=== PATIENT | female | born 1995 | race Caucasian/White ===

== ENCOUNTER → 2017-10-28 | Outpatient (CLI) | payer BC, OTHER ==
[~2017-10-28] MED LIST: AMBIEN 5 MG TABL5 M1 PO; FLEXERIL PO; HYDROCODONE-AP1 EAC6 PO; IBUPROFEN 600600 M1 PO; IMITREX 25 MG T25 M1 PO; LITHIUM CARBON300 M6 PO; NEURONTIN 300300 M1 PO; NEURONTIN 400400 M1 PO; XANAX 0.25 MG0.25 MG PO; XANAX1 MG PO
[2017-10-28 11:44] LABS: ABSOLUTE BASOPHILS 0.1 thou/uL (0.0-0.2); ABSOLUTE EOSINOPHILS 0.4 thou/uL (0.0-0.7); ABSOLUTE LYMPHOCYTES 2.6 thou/uL (0.8-5.3); ABSOLUTE MONOCYTES 0.6 thou/uL (0.0-1.2); ABSOLUTE NEUTROPHILS 4.3 thou/uL (1.6-8.1); BASOPHILS 0.8 %; EOSINOPHILS 4.7 %; HEMOGLOBIN 12.8 gm/dL (12.0-15.0); LYMPHOCYTES 33.1 %; MCH 31.6 pg (26.0-34.0); MCHC 33.6 g/dL (28.0-37.0); MONOCYTES 7.8 %; MPV 7.2 fl. (7.2-11.1); NUCLEATED RBCS 0 /100WBC; PLATELET COUNT* 323 thou/uL (150-400); POLYS 53.6 %; RBC 4.05 mil/uL (4.20-5.00); RDW-CV 12.2 % (10.5-14.5)
[2017-10-28 11:56] LABS: ALBUMIN 3.5 g/dL (3.4-5.0); CALCIUM 8.5 mg/dL (8.5-10.1); CREATININE 0.8 mg/dL (0.6-1.3); POTASSIUM 3.5 mmol/L (3.5-5.1); TOTAL BILIRUBIN 0.5 mg/dL (<0.1-1.0); TOTAL PROTEIN 6.9 g/dL (6.4-8.2)
== END ==
LOC: M.LAB 11:18
PROVIDERS: Psychiatry & Neurology Psychiatry
DX: F31.63 Bipolar disorder, current episode mixed, severe, without psychotic features (principal)

== ENCOUNTER 2017-11-13 19:37 | Emergency (ER) | payer BC, OTHER ==
[~2017-11-13] VITALS: Ht 162.6 cm; Wt 54.4 kg
[~2017-11-13 19:37] MED LIST changes: -AMBIEN 5 MG TABL5 M1 PO; -FLEXERIL PO; -HYDROCODONE-AP1 EAC6 PO; -IBUPROFEN 600600 M1 PO; -IMITREX 25 MG T25 M1 PO; -LITHIUM CARBON300 M6 PO; -NEURONTIN 300300 M1 PO; -NEURONTIN 400400 M1 PO; -XANAX1 MG PO
[2017-11-13] MEDS ORDERED: AMBIEN 5 MG TABL5 M1 PO (19:49)
[2017-11-13] MEDS ORDERED: XANAX1 MG PO (19:49)
[2017-11-13] MEDS ORDERED: NEURONTIN 400400 M1 PO (19:49)
[2017-11-13] MEDS ORDERED: LITHIUM CARBON300 M6 PO (19:50)
[2017-11-13] MEDS ORDERED: IMITREX 25 MG T25 M1 PO (19:51)
[2017-11-13] MEDS ORDERED: IBUPROFEN 600600 M1 PO (20:35)
[2017-11-13 20:50] VITALS: BP 100/47
== END 2017-11-13 20:51 | disposition home or self-care (01) ==
LOC: M.ERS 19:37
DX: S63.501A Unspecified sprain of right wrist, initial encounter (principal); W19.XXXA Unspecified fall, initial encounter; Y93.89 Activity, other specified; Y92.89 Other specified places as the place of occurrence of the external cause; Y99.8 Other external cause status; F32.9 Major depressive disorder, single episode, unspecified; M79.7 Fibromyalgia; Z88.8 Allergy status to other drugs, medicaments and biological substances

== ENCOUNTER 2017-12-06 02:08 | Emergency (ER) | payer BC, OTHER ==
[~2017-12-06] VITALS: Ht 152.4 cm; Wt 54.4 kg
[~2017-12-06 02:08] MED LIST changes: +AMBIEN 5 MG TABL5 M1 PO; +IBUPROFEN 600600 M1 PO; +IMITREX 25 MG T25 M1 PO; +LITHIUM CARBON300 M6 PO; +NEURONTIN 400400 M1 PO; +XANAX1 MG PO
[2017-12-06] MEDS ORDERED: FLEXERIL PO (02:34)
[2017-12-06] MEDS ORDERED: NEURONTIN 300300 M1 PO (02:35)
[2017-12-06 02:55] LABS: HEMATOCRIT 39.3 % (37.0-47.0); HEMOGLOBIN 13.2 gm/dL (12.0-15.0); MCH 31.2 pg (26.0-34.0); MCHC 33.7 g/dL (28.0-37.0); MCV 92.5 fL (80.0-100.0); MPV 7.4 fl. (7.2-11.1); RBC 4.25 mil/uL (4.20-5.00); WBC 10.6 thou/uL (4.0-11.0)
[2017-12-06 03:08] LABS: URINE BILIRUBIN NEGATIVE (Negative); URINE BLOOD NEGATIVE (Negative); URINE CLARITY CLEAR; URINE COLOR YELLOW; URINE GLUCOSE-RANDOM NEGATIVE (Negative); URINE KETONES NEGATIVE (Negative); URINE LEUKOCYTES-REFLEX NEGATIVE (Negative); URINE NITRITE-REFLEX NEGATIVE (Negative); URINE PROTEIN NEGATIVE (Negative); URINE SPECIFIC GRAVITY <= 1.005 (1.005-1.030); URINE UROBILINOGEN 0.2 E.U./dl (0.2-1.0)
[2017-12-06 03:16] LABS: AMP/METHAMP Negative (Negative); BARBITURATES Negative (Negative); BENZODIAZEPINES POSITIVE (Negative); COCAINE Negative (Negative); METHADONE Negative (Negative); OPIATES Negative (Negative); PCP Negative (Negative); THC POSITIVE (Negative)
[2017-12-06 03:23] LABS: CALCIUM 8.7 mg/dL (8.5-10.1); CREATININE 0.9 mg/dL (0.6-1.3)
[2017-12-06 03:28] LABS: TOTAL BILIRUBIN 0.3 mg/dL (<0.1-1.0); TOTAL PROTEIN 7.6 g/dL (6.4-8.2)
[2017-12-06] MEDS ORDERED: HYDROCODONE-AP1 EAC6 PO (04:26)
[2017-12-06 05:25] VITALS: BP 91/53
== END 2017-12-06 05:28 | disposition home or self-care (01) ==
LOC: M.ERS 02:08
PROVIDERS: Emergency Medicine Emergency Medical Services
DX: M79.641 Pain in right hand (principal); S00.31XA Abrasion of nose, initial encounter; S70.312A Abrasion, left thigh, initial encounter; F32.9 Major depressive disorder, single episode, unspecified; M79.7 Fibromyalgia; Z91.013 Allergy to seafood; Z88.8 Allergy status to other drugs, medicaments and biological substances; T74.21XA Adult sexual abuse, confirmed, initial encounter; Y93.89 Activity, other specified; Y92.89 Other specified places as the place of occurrence of the external cause; Y99.8 Other external cause status

== ENCOUNTER 2017-12-23 14:20 | Emergency (ER) | payer BC, OTHER ==
[~2017-12-23] VITALS: Ht 162.6 cm; Wt 47.6 kg
[~2017-12-23 14:20] MED LIST changes: +FLEXERIL PO; +HYDROCODONE-AP1 EAC6 PO; +NEURONTIN 300300 M1 PO
[2017-12-23 15:30] VITALS: BP 118/75
== END 2017-12-23 15:30 | disposition home or self-care (01) ==
LOC: M.ERS 14:20
DX: S93.492A Sprain of other ligament of left ankle, initial encounter (principal); F32.9 Major depressive disorder, single episode, unspecified; M79.7 Fibromyalgia; Z91.041 Radiographic dye allergy status; Z88.8 Allergy status to other drugs, medicaments and biological substances; Z91.013 Allergy to seafood; X58.XXXA Exposure to other specified factors, initial encounter; Y93.89 Activity, other specified; Y92.89 Other specified places as the place of occurrence of the external cause; Y99.8 Other external cause status

== ENCOUNTER 2018-02-03 15:36 | Emergency (ER) | payer BC, OTHER ==
[~2018-02-03] VITALS: Ht 162.6 cm; Wt 45.4 kg
[2018-02-03] MEDS ORDERED: REMERON15 MG PO (15:44)
[2018-02-03] MEDS ORDERED: PRAZOSIN 1 MG CA1 M1 PO (15:44)
[2018-02-03 16:12] LABS: URINE BILIRUBIN NEGATIVE (Negative); URINE BLOOD NEGATIVE (Negative); URINE CLARITY CLEAR; URINE COLOR YELLOW; URINE GLUCOSE-RANDOM NEGATIVE (Negative); URINE KETONES NEGATIVE (Negative); URINE LEUKOCYTES-REFLEX NEGATIVE (Negative); URINE NITRITE-REFLEX NEGATIVE (Negative); URINE PROTEIN NEGATIVE (Negative); URINE SPECIFIC GRAVITY <= 1.005 (1.005-1.030); URINE UROBILINOGEN 0.2 E.U./dl (0.2-1.0)
[2018-02-03 16:38] LABS: ABSOLUTE BASOPHILS 0.1 thou/uL (0.0-0.2); ABSOLUTE EOSINOPHILS 0.2 thou/uL (0.0-0.7); ABSOLUTE LYMPHOCYTES 3.6 thou/uL (0.8-5.3); ABSOLUTE MONOCYTES 0.8 thou/uL (0.0-1.2); BASOPHILS 0.6 %; EOSINOPHILS 1.9 %; HEMATOCRIT 39.5 % (37.0-47.0); HEMOGLOBIN 13.1 gm/dL (12.0-15.0); MCH 30.9 pg (26.0-34.0); MCHC 33.3 g/dL (28.0-37.0); MCV 92.9 fL (80.0-100.0); MONOCYTES 7.7 %; MPV 7.4 fl. (7.2-11.1); NUCLEATED RBCS 0 /100WBC; PLATELET COUNT* 385 thou/uL (150-400); POLYS 55.8 %; RBC 4.25 mil/uL (4.20-5.00); WBC 10.7 thou/uL (4.0-11.0)
[2018-02-03 16:43] LABS: CALCIUM 9.1 mg/dL (8.5-10.1); CREATININE 0.8 mg/dL (0.6-1.3); POTASSIUM 3.2 mmol/L (3.5-5.1)
[2018-02-03 16:44] LABS: APTT 26.2 Seconds (25.0-31.3); PROTIME 10.5 Seconds (9.20-11.50)
[2018-02-03 16:48] LABS: ALBUMIN 3.8 g/dL (3.4-5.0); TOTAL BILIRUBIN 0.4 mg/dL (<0.1-1.0); TOTAL PROTEIN 7.4 g/dL (6.4-8.2)
[2018-02-03] MEDS ORDERED: PEPCID20 MG PO (19:42)
[2018-02-03 20:05] VITALS: BP 131/77
== END 2018-02-03 20:00 | disposition home or self-care (01) ==
LOC: M.ERS 15:36
PROVIDERS: Physician Assistant
DX: K62.5 Hemorrhage of anus and rectum (principal); R10.32 Left lower quadrant pain; F32.9 Major depressive disorder, single episode, unspecified; M79.7 Fibromyalgia; F17.200 Nicotine dependence, unspecified, uncomplicated; Z91.041 Radiographic dye allergy status; Z91.013 Allergy to seafood

== ENCOUNTER 2018-08-24 11:03 | Emergency (ER) | payer BC, OTHER ==
[~2018-08-24] VITALS: Ht 162.6 cm; Wt 49.9 kg
[~2018-08-24 11:03] MED LIST changes: +PEPCID20 MG PO; +PRAZOSIN 1 MG CA1 M1 PO; +REMERON15 MG PO
[2018-08-24] MEDS ORDERED: SEROQUEL 25 MG25 M1 PO (11:34)
[2018-08-24] MEDS ORDERED: LINZESS72 MCG PO (11:34)
[2018-08-24 11:54] LABS: ABSOLUTE LYMPHOCYTES 1.8 thou/uL (0.8-5.3); HEMOGLOBIN 11.5 gm/dL (12.0-15.0); MCH 31.1 pg (26.0-34.0)
[2018-08-24 11:55] LABS: ABSOLUTE EOSINOPHILS 0.3 thou/uL (0.0-0.7); ABSOLUTE MONOCYTES 0.5 thou/uL (0.0-1.2); ABSOLUTE NEUTROPHILS 6.3 thou/uL (1.6-8.1); BASOPHILS 0.4 %; EOSINOPHILS 2.9 %; HEMATOCRIT 33.9 % (37.0-47.0); LYMPHOCYTES 20.1 %; MCHC 33.9 g/dL (28.0-37.0); MCV 91.7 fL (80.0-100.0); MONOCYTES 5.2 %; MPV 7.8 fl. (7.2-11.1); NUCLEATED RBCS 0 /100WBC; PLATELET COUNT* 329 thou/uL (150-400); POLYS 71.4 %; RDW-CV 13.1 % (10.5-14.5); WBC 8.8 thou/uL (4.0-11.0)
[2018-08-24 11:58] LABS: ANION GAP 12 mmol/L (7-16); BUN 10 mg/dL (7-18); CALCIUM 8.2 mg/dL (8.5-10.1); CHLORIDE 108 mmol/L (98-107); CO2 19 mmol/L (21-32); CREATININE 0.6 mg/dL (0.6-1.3); GLUCOSE 97 mg/dL (70-99); POTASSIUM 3.7 mmol/L (3.5-5.1); SODIUM 139 mmol/L (136-145)
[2018-08-24 12:11] LABS: ALBUMIN 3.2 g/dL (3.4-5.0); ALKALINE PHOSPHATASE 66 U/L (46-116); NT-PRO BRAIN NAT PEPTIDE 50 pg/mL (<300); SGOT 8 U/L (15-37); SGPT 13 U/L (30-65); TOTAL BILIRUBIN 0.2 mg/dL (<0.1-1.0); TOTAL PROTEIN 6.8 g/dL (6.4-8.2); TROPONIN-I LEVEL <0.06 ng/mL (<0.06)
[2018-08-24 13:06] LABS: URINE BILIRUBIN NEGATIVE (Negative); URINE BLOOD NEGATIVE (Negative); URINE CLARITY CLEAR; URINE COLOR YELLOW; URINE GLUCOSE-RANDOM NEGATIVE (Negative); URINE KETONES NEGATIVE (Negative); URINE LEUKOCYTES-REFLEX NEGATIVE (Negative); URINE NITRITE-REFLEX NEGATIVE (Negative); URINE PROTEIN NEGATIVE (Negative); URINE SPECIFIC GRAVITY <= 1.005 (1.005-1.030); URINE UROBILINOGEN 0.2 E.U./dl (0.2-1.0)
[2018-08-24] MEDS ORDERED: TRINATE TABLET1 EACH PO (14:29)
[2018-08-24] MEDS ORDERED: FLEXERIL PO (14:29)
[2018-08-24] MEDS ORDERED: AMOXICILLIN 50500 MG PO (14:29)
[2018-08-24 14:44] VITALS: BP 99/54
--- NOTE | 2018-08-24 15:32 | EKG ---
[place] [address] ELECTROCARDIOGRAM REPORT Name: REKHA ASHRAF Room: [facility]#: [id number] Admission: 08/24/18 Attend Phys: Discharge: 08/24/18 Date of : [birth year] Report #: [id number] THIS REPORT FOR: //name// [facility] ED Test Date: 2018-08-24 Test Time: 11:41:20 Pat Name: REKHA ASHRAF Department: Room: Gender: F [employer]: : 1995 Requested By: Susan Brambila Order Number: [id number] MD: Edgardo Holden Measurements Intervals Cost Rate: 80 P: 53 MO: 139 QRS: 66 QRSD: 78 T: 46 QT: 375 QTc: 433 Interpretive Statements Sinus rhythm No previous ECG available for comparison Electronically Signed On 08-24-2018 15:32:38 CDT by Edgardo Holden [email or web address] <ELECTRONICALLY SIGNED> By: Edgardo Holden MD, [facility] 08/24/18 1532 1141 1141 Edgardo Holden MD, FACC /EPI
== END 2018-08-24 14:45 | disposition home or self-care (01) ==
LOC: M.ERS 11:03
PROVIDERS: Nurse Practitioner Family
DX: O26.891 Other specified pregnancy related conditions, first trimester (principal); S16.1XXA Strain of muscle, fascia and tendon at neck level, initial encounter; O00.01 Abdominal pregnancy with intrauterine pregnancy; O99.511 Diseases of the respiratory system complicating pregnancy, first trimester; O99.341 Other mental disorders complicating pregnancy, first trimester; O99.331 Smoking (tobacco) complicating pregnancy, first trimester; Z85.41 Personal history of malignant neoplasm of cervix uteri; Z91.041 Radiographic dye allergy status; Z91.013 Allergy to seafood; Z88.8 Allergy status to other drugs, medicaments and biological substances; Z3A.08 8 weeks gestation of pregnancy